=== PATIENT | male | born 1980 | race African-American/Black ===

== ENCOUNTER 2019-07-14 04:26 | Inpatient (IN) | payer MEDICAID, OTHER ==
[~2019-07-14] VITALS: Ht 165.1 cm; Wt 98.2 kg
[2019-07-14] MEDS ORDERED: SODIUM CHLORIDE 0.9% 1,000 ML IV NR (05:35)
[2019-07-14] MEDS ORDERED: ACETAMINOPHEN 500MG TABLET PO NR (05:45)
[2019-07-14 06:27] LABS: HEMOGLOBIN. 14.2 g/dL (14.0-18.0); MEAN CORPUSCULAR HEMOGLOBIN 28.4 pg (28.0-32.0); MEAN CORPUSCULAR VOLUME 84.1 fL (80.0-94.0); MEAN PLATELET VOLUME 8.2 fl (7.4-10.4); PLATELET 174 x1000/uL (130-400); RED CELL DISTRIBUTION WIDTH 13.7 % (11.6-14.6)
[2019-07-14 06:36] LABS: CHLORIDE 105 mEq/L (98-107); INR 1.1; PROTHROMBIN TIME 11.7 sec (9.6-11.0)
[2019-07-14 07:06] LABS: PLATELET ESTIMATE NORMAL
[2019-07-14] MEDS ORDERED: VANCOMYCIN 1 G PREMIX 200 ML IV ONE (08:30)
[2019-07-14] MEDS ORDERED: PIPERACILLIN/TAZ 3.375G PREMIX 50 ML IV ONE (08:30)
[2019-07-14] MEDS ORDERED: ACETAMINOPHEN 325MG TABLET PO PRN (09:30)
[2019-07-14] MEDS ORDERED: CEFTRIAXONE 1 G PREMIX 50 ML IV NR (11:15)
[2019-07-14] MEDS ORDERED: LEVO500T2 MT (13:44)
[2019-07-14 13:50] VITALS: BP 116/70
[2019-07-14] MEDS ORDERED: AZITHROMYCIN 500 MG TABLET PO NR (14:00)
[2019-07-14 14:12] VITALS: BP 149/70
[2019-07-14 15:08] VITALS: BP 116/70
[2019-07-14] MEDS ORDERED: ASCORBIC ACID 500 MG TABLET PO SCH (21:00)
[2019-07-14] MEDS ORDERED: ENOXAPARIN 30MG/0.3ML SYR SUBCUT SCH (21:00)
[2019-07-15] MEDS ORDERED: ZINC SULFATE 220 MG ( 50 ) CAPSULE PO SCH (09:00)
[2019-07-15] MEDS ORDERED: CEFTRIAXONE 1 G PREMIX 50 ML IV SCH (09:00)
[2019-07-15] MEDS ORDERED: AZITHROMYCIN 250 MG TABLET PO SCH (09:00)
== END 2019-07-14 17:15 | disposition home or self-care (01) | DRG 720 ==
LOC: ER 05:03 → 7EST 09:23 → ENRESERV 13:08
PROVIDERS: ADMIT Internal Medicine; ATTEND Internal Medicine
DX: A41.9 Sepsis, unspecified organism (principal); J18.9 Pneumonia, unspecified organism; E66.9 Obesity, unspecified; Z20.828 Contact with and (suspected) exposure to other viral communicable diseases; J06.9 Acute upper respiratory infection, unspecified; E78.00 Pure hypercholesterolemia, unspecified; E78.5 Hyperlipidemia, unspecified; Z79.899 Other long term (current) drug therapy; Z68.36 Body mass index [BMI] 36.0-36.9, adult
CPT/HCPCS: 36415; 71045; 80053; 83036; 83605; 84145; 85025; 85379; 99291; J0696; J2543; J3370; U0003-CS

== ENCOUNTER 2021-02-26 21:26 | Emergency (ER) | payer MEDICAID ==
[~2021-02-26] VITALS: Ht 165.1 cm; Wt 90.0 kg
[~2021-02-26 21:26] MED LIST: LEVO500T2 MT
[2021-02-26 22:09] VITALS: BP 131/96
== END 2021-02-26 23:20 | disposition home or self-care (01) ==
LOC: ER 21:26
DX: B34.9 Viral infection, unspecified (principal); Z20.822 Contact with and (suspected) exposure to COVID-19
CPT/HCPCS: 99283; C9803; U0003; U0005